=== PATIENT | male | born 1970 | race Caucasian/White ===

== ENCOUNTER 2017-10-22 20:04 | Inpatient (IN) ==
[2017-10-22] MEDS ORDERED: NS 1,000 ML IV ONE (20:20)
[2017-10-22] MEDS ORDERED: DiltiaZEM 25 MG/5 ML INJECTION IVP ONE (20:20)
--- NOTE | 2017-10-22 20:24 | Emergency Department Report ---
Cardiac General HPI - General Chief Complaint: Arrhythmia/Palpitations Stated Complaint: irregular heartrate bypass srg 4weeks ago Time Seen by Provider: 10/22/17 20:12 Source: patient Mode of arrival: ambulatory Limitations: no limitations - History of Present Illness HPI narrative: With 1-2 hour history of rapid pulse and mild tightness in the chest. 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 Patient is one month status post one vessel CABG with thoracic aortic repair. He has never had atrial fibrillation before, has never had an irregular heartbeat. Current medications include metoprolol 25 mg daily, baby aspirin, and a lipid lowering agent. Patient has had a mild cough since surgery, but no fevers, no difficulty breathing, no pulmonary disease is known. - Related Data Home Medications Medication Instructions Recorded Confirmed Aspirin *EC* [Ecotrin] 81 mg PO DAILY 09/19/17 10/22/17 Loratadine [Claritin] 10 mg PO DAILY 09/19/17 10/22/17 Multivitamin/Iron/Folic Acid 1 tab PO DAILY 09/19/17 10/22/17 [Centrum Adults Tablet] Nitroglycerin 0.4 mg SL PRN 09/19/17 10/22/17 Atorvastatin [Lipitor] 40 mg PO HS 10/17/17 10/22/17 Metoprolol Tartrate [Lopressor] 25 mg PO BIDWM 10/17/17 10/22/17 Acetaminophen [Tylenol] 1,000 mg PO Q5H PRN 10/22/17 10/22/17 Cholecalciferol (Vitamin D3) 2,000 unit PO DAILY 10/22/17 10/22/17 [Vitamin D3] Allergies Allergy/AdvReac Type Severity Reaction Status Date / Time No Known Allergies Allergy Verified 10/22/17 20:32 Review of Systems All systems: reviewed and negative except as stated PFSH Patient Stated Medical History Angina Yes Coronary artery disease Atrial fibrillation with RVR Surgical History: CABG 1. Thoracic aortic aneurysm repair - Social History Smoking status: Never smoker Substance use type: does not use Alcohol intake frequency: does not drink Physical Exam - Limitations Limitations: no limitations - General General appearance: alert - Normal Exams: Head:: Normocephalic without trauma Eyes:: Pupils are PERRLA w/ EOMI, No scleral icterus, irritation, or foreign bodies noted ENMT:: No facial trauma, nasal exudates, pharyngeal erythema, or exudates are noted Neck:: Full range of motion, without adenopathy, JVD, bruits or thyromegaly Chest/Respirations:: Clear all ma, with good airflow, and symmetry bilaterally Abdomen:: Bowel sounds positive Lymphatic:: No lymphadenopathy, or lymphedema noted Musculoskeletal:: No tenderness, or deformity noted, good range of motion, all extremities Integumentary:: No rashes, hives, or bruising noted, hair and nails, without abnormality Neurological:: Patient is alert, and oriented, cranial nerves, motor/sensory/ cerebellar, exams w/o gross deficits, to observation Psychiatric:: Patient exhibits, appropriate attention, emotion and affect - Cardiovascular Cardiovascular exam: Present: tachycardia, irregular rhythm Cardiac General - MDM Narrative Medical decision making narrative: Patient is in atrial fibrillation with RVR, EKG shows the same with no ischemia or signs of STEMI. Patient is given Cardizem 20 mg, and 1 L normal saline IV fluid bolus - CBC - n CMP - n Troponin - n CXR - n Patient converted to normal sinus rhythm after the first dose of medications, however with any standing or exertion patient has multiple episodes where he'll slip back in atrial fibrillation for several beats, and then converted back to sinus rhythm. After consultation with MANDO Perez for alireza Ward patient warrants observation overnight in the CCU with a Cardizem drip, to assure complete conversion to sinus rhythm. - Lab Data Result diagrams: 10/22/17 20:24 10/22/17 20:24 Disposition Clinical Impression: Atrial fibrillation with RVR Disposition: 02 To [facility] Condition: Improved Prescriptions: No Action Multivitamin/Iron/Folic Acid [Centrum Adults Tablet] 1 tab PO DAILY Aspirin *EC* [Ecotrin] 81 mg PO DAILY Loratadine [Claritin] 10 mg PO DAILY Metoprolol Tartrate [Lopressor] 25 mg PO BIDWM Atorvastatin [Lipitor] 40 mg PO HS Acetaminophen [Tylenol] 1,000 mg PO Q5H PRN PRN Reason: Pain Nitroglycerin 0.4 mg SL PRN Cholecalciferol (Vitamin D3) [Vitamin D3] 2,000 unit PO DAILY Referrals: Moise Morris MD [Primary Care Provider] - - Seen By: physician
[2017-10-22] MEDS: SALINE FLUSH 10ml SYRINGE IVF PRN (20:36)
[2017-10-22] MEDS: DiltiaZEM Drip 125 MG in NS 125 ML IV SCH (21:38)
[2017-10-22 22:07] VITALS: BMI 24.2
[2017-10-22] MEDS: ATORVASTATIN 40 MG TABLET PO SCH (22:52)
[2017-10-23] MEDS ORDERED: ACETAMINOPHEN 500 MG TABLET PO PRN (05:43)
[2017-10-23] MEDS ORDERED: ENOXAPARIN 150 MG/ML INJECTION SQ SCH (05:45)
--- NOTE | 2017-10-23 08:14 | XRay Report ---
Indication: new onset afib with RVR Procedure: XR chest 2V: Encounter: Initial Comparison: None Technique: PA and lateral radiographs of the chest were obtained. Findings: Lungs and airways: Normal lung volumes. No focal airspace consolidation. Normal pulmonary vasculature. Pleura: No pleural effusion or pneumothorax. Heart and mediastinum: Postoperative changes of CABG. The cardiomediastinal silhouette and great vessels are otherwise within normal limits. Osseous structures and soft tissues: No acute osseous abnormality is seen. Postoperative changes of median sternotomy. Mild degenerative disc disease of the thoracic spine. Impression: No acute cardiopulmonary process. .
[2017-10-23] MEDS: ENOXAPARIN 80 MG/0.8 ML INJECTION SQ SCH ×2 (08:30→08:33)
[2017-10-23] MEDS: LORATADINE 10 MG TABLET PO SCH (08:30)
[2017-10-23] MEDS: ASPIRIN *EC* 81 MG TABLET PO SCH (08:31)
[2017-10-23] MEDS: SALINE FLUSH 10ml SYRINGE IVF PRN ×2 (08:31→20:57)
[2017-10-23] MEDS ORDERED: NON-FORMULARY MEDICATION 1 EACH EACH (Loratadine [Claritin] 10 MG) PO SCH (09:00)
[2017-10-23] MEDS ORDERED: NON-FORMULARY MEDICATION 1 EACH EACH (Cholecalciferol (Vitamin D3) [Vitamin D3] 2,000 UNIT PO SCH (09:00)
--- NOTE | 2017-10-23 12:46 | Cardiology History & Physical ---
History of Present Illness Chief complaint: racing heartbeat HPI: Lukasz is a 46 year old male who is known to Dr. Rangel with a history of CAD , one month status post one vessel CABG with thoracic aortic repair who presented to the ED last night with 1-2 hour history of rapid pulse and mild tightness in the chest. He has never had atrial fibrillation before, has never had an irregular heartbeat. Current medications include metoprolol 25 mg daily, baby aspirin, and a lipid lowering agent. He denies recent illness, fevers, sore throat, difficulty breathing, no pulmonary disease is known. Review of Systems - Constitutional Constitutional: Absent: chills, fatigue, fever(s) - EENMT Eyes: Absent: blurry vision, change in vision Balance: Absent: vertigo Mouth/Throat: Absent: sore throat - Cardiovascular Cardiovascular: Present: chest pain (tightness), palpitations (fast heart rate) . Absent: syncope, dyspnea on exertion, orthopnea, edema Rhythm: Absent: abnormal rhythm Vascular: Absent: pedal edema - Respiratory Respiratory: Present: cough. Absent: dyspnea, dyspnea on exertion - Gastrointestinal Gastrointestinal: Absent: constipation, nausea, vomiting - Genitourinary Genitourinary: Absent: dysuria - Integumentary/Breasts Integumentary: Absent: rash - Neurological Neurological: Present: dizziness (occasionally) - Endocrine Endocrine: Present: palpitations [facility] Patient Stated Medical History Myocardial Infarction Yes CAD HLD Surgical History: CABG 1. Thoracic aortic aneurysm repair Family History: Mother - CABG, PPM Father - CABG - Social History Smoking status: Never smoker Substance use type: does not use Alcohol intake frequency: does not drink Housing: house Household members: spouse Current occupational status: employed Current occupation: teller - [employer] Current occupational exposures/hazards: No Does patient use chewing tobacco?: No Current residence: Apartment/Private Home Medications Home Medications Medication Instructions Recorded Confirmed Type Aspirin *EC* [Ecotrin] 81 mg PO DAILY 09/19/17 10/22/17 History Loratadine [Claritin] 10 mg PO DAILY 09/19/17 10/22/17 History Multivitamin/Iron/Folic Acid 1 tab PO DAILY 09/19/17 10/22/17 History [Centrum Adults Tablet] Nitroglycerin 0.4 mg SL PRN 09/19/17 10/22/17 History Atorvastatin [Lipitor] 40 mg PO HS 10/17/17 10/22/17 History Acetaminophen [Tylenol] 1,000 mg PO Q5H PRN 10/22/17 10/22/17 History Cholecalciferol (Vitamin D3) 2,000 unit PO DAILY 10/22/17 10/22/17 History [Vitamin D3] Sotalol [Betapace] 40 mg PO ACBID #30 tab 10/24/17 Rx Allergies Allergy/AdvReac Type Severity Reaction Status Date / Time No Known Allergies Allergy Verified 10/22/17 20:32 Exam Vital signs: Temperature 97.9 F 10/23/17 07:51 Pulse Rate 76 10/23/17 11:01 Respiratory Rate 18 10/23/17 10:00 Blood Pressure 102/69 10/23/17 10:00 Pulse Oximetry 97 10/23/17 10:00 - Constitutional no acute distress, well nourished, cooperative - Routine HEENT Exam Head: Present: normocephalic ENT: Present: mucous membranes moist - Routine Neck Exam Absent: JVD, carotid bruit - Routine Chest/Breast/Axilla Exam Chest wall: Absent: tenderness - Routine Respiratory Exam Present: CTA bilaterally. Absent: rales, wheezes - Routine Cardiovascular Exam Present: RRR. Absent: JVD - Routine Abdominal Exam Present: soft, non tender - Routine Extremities Exam Present: no edema - Routine Skin Exam Present: intact, dry, warm - Routine Neurological Exam Present: alert, oriented X3 - Routine Psychiatric Exam Present: normal affect, normal thought process Results 10/24/17 05:30 10/24/17 05:30 CBC 10/23/17 Range/Units 04:27 WBC 7.0 (4.5-11.0) T/MM3 RBC 4.13 L (4.50-5.90) M/MM3 Hgb 11.5 L (13.5-17.5) GM/DL Hct 35.5 L (41-53) % Plt Count 135 (130-400) T/MM3 Neut # (Auto) 3.5 (1.8-7.7) T/MM3 Lymph # (Auto) 2.1 (1-4.8) T/MM3 Ritchie # (Auto) 0.6 (0-0.8) T/MM3 Eos # (Auto) 0.9 H (0-0.5) T/MM3 Baso # (Auto) 0.0 (0-0.2) T/MM3 Comprehensive Metabolic Panel 10/23/17 Range/Units 04:27 Sodium 145 (136-146) MEQ/L Potassium 4.0 (3.6-5) MEQ/L Chloride 108 H (98-107) MEQ/L Carbon Dioxide 26 (22-30) MEQ/L BUN 14.0 (9-20) MG/DL Creatinine 0.7 L D (0.8-1.5) mg/dL Glucose 92 (75-110) MG/DL Calcium 8.5 (8.4-10.2) MG/DL Intake and Output 10/22/17 10/23/17 10/23/17 22:59 06:59 14:59 Intake Total 1001.417 / 1001.417 32.084 / 32.084 240 / 240 Output Total 750 / 750 Balance 1001.417 / 1001.417 -717.916 / -717.916 240 / 240 Intake: IV 1001.417 / 1001.417 32.084 / 32.084 DiltiaZEM Drip 125 mg In Ns 125 1.417 / 1.417 32.084 / 32.084 ml @ 5 mls/hr IV .Q24H JER Rx# :[id number] Ns 1,000 ml @ 999.9 mls/hr IV . 1000 / 1000 Q1H ONE Rx#:[id number] Oral 240 / 240 Output: Urine 750 / 750 Other: # Voids 1 Weight 173 lb 8.061 oz - Imaging and Cardiology Imaging & Cardiology Narrative: Date of Exam: 10/22/17 Ordering Provider: Teto Shannon MD Type of Exam(s): XR chest 2V Reason for Exam(s): new onset afib with RVR Indication: new onset afib with RVR Procedure: XR chest 2V: Encounter: Initial Comparison: None Technique: PA and lateral radiographs of the chest were obtained. Findings: Lungs and airways: Normal lung volumes. No focal airspace consolidation. Normal pulmonary vasculature. Pleura: No pleural effusion or pneumothorax. Heart and mediastinum: Postoperative changes of CABG. The cardiomediastinal silhouette and great vessels are otherwise within normal limits. Osseous structures and soft tissues: No acute osseous abnormality is seen. Postoperative changes of median sternotomy. Mild degenerative disc disease of the thoracic spine. Impression: No acute cardiopulmonary process. 10/23/17 12:50 EKG interpretations - EKG EKG results cardiology: sinus rhythm - RI, pacemaker, normal Myocardial infarction: inferior RI (acute or recent), lateral RI (old age or indeterminate) Hospital Course This is a general summary of the patient's hospital course. For more details refer to the complete medical record. Time spent with patient: 25 - 35 minutes Resuscitation Status: Full Code Assessment and Plan - Attestation Attestation Narrative: 10/26/17 14:54 Recommendation After examining the patient I agree with the above assessment. I am involved in the formulation of the patient's plan of care. - Assessment and Plan (1) Atrial fibrillation with RVR Status: Acute Converted to SR with IV Cardizem - Change Metoprolol to Sotalol 40mg po BID, start now - Continue to monitor telemetry, may transfer to Medical floor - Check TSH - EKG in am (2) Atherosclerotic heart disease of [place] coronary artery without angina pectoris Status: Chronic one vessel CABG with thoracic aortic repair - Continue Aspirin, BB and Statin therapy (3) Mixed hyperlipidemia Status: Chronic Continue Aspirin, BB and Statin therapy
[2017-10-23] MEDS: SOTALOL 80 MG TABLET PO SCH ×2 (13:02→20:43)
[2017-10-23] MEDS: ATORVASTATIN 40 MG TABLET PO SCH (20:56)
[2017-10-23] MEDS ORDERED: ATORVASTATIN 40 MG TABLET PO SCH ×2 (21:00)
[2017-10-24] MEDS: SOTALOL 80 MG TABLET PO SCH (06:26)
[2017-10-24] MEDS: LORATADINE 10 MG TABLET PO SCH ×2 (06:26→06:31)
[2017-10-24] MEDS: ASPIRIN *EC* 81 MG TABLET PO SCH (08:06)
--- NOTE | 2017-10-24 08:50 | Discharge Summary ---
<Samaria Jose - Last Filed: 10/24/17 12:44> Discharge Information Date of admission: 10/23/17 13:44 Anticipated date of discharge: 10/24/17 Attending Physician: Garfield Rangel MD Primary care physician: Moise Morris MD - Discharge Diagnosis (1) Atrial fibrillation with RVR Status: Acute (2) Atherosclerotic heart disease of [place] coronary artery without angina pectoris Status: Chronic (3) Mixed hyperlipidemia Status: Chronic Atrial fibrillation with RVR - Laboratory Labs: 10/24/17 05:30 10/24/17 05:30 History of Present Illness HPI: Lukasz is a 46 year old male who is known to Dr. Rangel with a history of CAD , one month status post one vessel CABG with thoracic aortic repair who presented to the ED last night with 1-2 hour history of rapid pulse and mild tightness in the chest. He has never had atrial fibrillation before, has never had an irregular heartbeat. Current medications include metoprolol 25 mg daily, baby aspirin, and a lipid lowering agent. He denies recent illness, fevers, sore throat, difficulty breathing, no pulmonary disease is known. Hospital Course This is a general summary of the patient's hospital course. For more details refer to the complete medical record. Hospital course: Atrial fibrillation with RVR Current visit: Yes Status: Acute Converted to SR with IV Cardizem - Change Metoprolol to Sotalol 40mg po BID, start now - Continue to monitor telemetry, may transfer to Medical floor - Check TSH - EKG in am Atherosclerotic heart disease of [place] coronary artery without angina pectoris Current visit: Yes Status: Chronic one vessel CABG with thoracic aortic repair - Continue Aspirin, BB and Statin therapy Mixed hyperlipidemia Current visit: Yes Status: Chronic Continue Aspirin, BB and Statin therapy Time spent with patient: 25 - 35 minutes Resuscitation Status: Full Code Exam Vital signs: Temperature 98.4 F 10/24/17 07:10 Pulse Rate 73 10/24/17 08:00 Respiratory Rate 16 10/24/17 07:10 Blood Pressure 116/72 10/24/17 07:10 Pulse Oximetry 95 10/24/17 07:10 - Constitutional no acute distress, well nourished, cooperative - Routine HEENT Exam Head: Present: normocephalic ENT: Present: mucous membranes moist - Routine Neck Exam Absent: JVD, carotid bruit - Routine Chest/Breast/Axilla Exam Chest wall: Absent: tenderness - Routine Respiratory Exam Present: CTA bilaterally. Absent: rales, wheezes - Routine Cardiovascular Exam Present: RRR, no murmur - Routine Abdominal Exam Present: soft, non tender - Routine Extremities Exam Present: no edema - Routine Skin Exam Present: intact, dry, warm - Routine Neurological Exam Present: alert, oriented X3 - Routine Psychiatric Exam Present: normal affect, normal thought process Results 10/24/17 05:30 10/24/17 05:30 CBC 10/24/17 Range/Units 05:30 WBC 8.4 (4.5-11.0) T/MM3 RBC 4.73 (4.50-5.90) M/MM3 Hgb 13.0 L D (13.5-17.5) GM/DL Hct 40.2 L D (41-53) % Plt Count 165 (130-400) T/MM3 Comprehensive Metabolic Panel 10/24/17 Range/Units 05:30 Sodium 146 (136-146) MEQ/L Potassium 4.2 (3.6-5) MEQ/L Chloride 107 (98-107) MEQ/L Carbon Dioxide 28 (22-30) MEQ/L BUN 13.0 (9-20) MG/DL Creatinine 0.9 D (0.8-1.5) mg/dL Glucose 92 (75-110) MG/DL Calcium 9.4 D (8.4-10.2) MG/DL Intake and Output 10/23/17 10/24/17 10/24/17 22:59 06:59 14:59 Intake Total 550 / 550 300 / 300 Balance 550 / 550 300 / 300 Intake: Oral 550 / 550 300 / 300 Other: # Voids 1 1 Weight 179 lb 10.828 oz Patient Weight 10/25/17 06:59 Weight 179 lb 10.828 oz - Imaging and Cardiology Imaging & Cardiology Narrative: Date of Exam: 10/22/17 Ordering Provider: Teto Shannon MD Type of Exam(s): XR chest 2V Reason for Exam(s): new onset afib with RVR Indication: new onset afib with RVR Procedure: XR chest 2V: Encounter: Initial Comparison: None Technique: PA and lateral radiographs of the chest were obtained. Findings: Lungs and airways: Normal lung volumes. No focal airspace consolidation. Normal pulmonary vasculature. Pleura: No pleural effusion or pneumothorax. Heart and mediastinum: Postoperative changes of CABG. The cardiomediastinal silhouette and great vessels are otherwise within normal limits. Osseous structures and soft tissues: No acute osseous abnormality is seen. Postoperative changes of median sternotomy. Mild degenerative disc disease of the thoracic spine. Impression: No acute cardiopulmonary process. . 10/24/17 08:47 - EKG Interpretation EKG: sinus rhythm (occ. PVS, LAD, LAE, QTc 436) Discharge Plan - Med Rec/Dispo Referrals/Follow Up: Garfield Rangel MD [Physician] - 11/07/17 9:00 am [place] Instructions: A-fib (Atrial Fibrillation) (DC) Prescriptions: New Sotalol [Betapace] 40 mg PO ACBID #30 tab Continue Multivitamin/Iron/Folic Acid [Centrum Adults Tablet] 1 tab PO DAILY Aspirin *EC* [Ecotrin] 81 mg PO DAILY Loratadine [Claritin] 10 mg PO DAILY Atorvastatin [Lipitor] 40 mg PO HS Acetaminophen [Tylenol] 1,000 mg PO Q5H PRN PRN Reason: Pain Nitroglycerin 0.4 mg SL PRN Cholecalciferol (Vitamin D3) [Vitamin D3] 2,000 unit PO DAILY Discontinued Metoprolol Tartrate [Lopressor] 25 mg PO BIDWM - Disposition 01 Discharged Home, Self-Care - Dismissal Complete Discharge Instructions are:: Complete <Garfield Rangel - Last Filed: 11/02/17 18:01> Discharge Information Date of admission: 10/23/17 13:44 Attending Physician: Garfield Rangel MD Primary care physician: oMise Morris MD - Discharge Diagnosis (1) Atrial fibrillation with RVR Status: Acute (2) Atherosclerotic heart disease of [place] coronary artery without angina pectoris Status: Chronic (3) Mixed hyperlipidemia Status: Chronic - Laboratory Labs: 10/24/17 05:30 10/24/17 05:30 Hospital Course This is a general summary of the patient's hospital course. For more details refer to the complete medical record. Exam Vital signs: Temperature 98.4 F 10/24/17 11:46 Pulse Rate 77 10/24/17 12:00 Respiratory Rate 12 10/24/17 11:46 Blood Pressure 124/100 H 10/24/17 11:49 Pulse Oximetry 96 10/24/17 11:46 Results 10/24/17 05:30 10/24/17 05:30 Attestation Narriative - Attestation Attestation Narrative: 11/02/17 18:01 Recommendation After examining the patient I agree with the above assessment. I am involved in the formulation of the patient's plan of care.
[2017-10-24] MEDS ORDERED: MULTI-VITAMIN + MINERAL TABLET PO SCH (09:00)
[2017-10-24] MEDS ORDERED: ENOXAPARIN 40 MG/0.4 ML INJECTION SQ SCH (09:00)
[2017-10-24] MEDS: DiltiaZEM Drip 125 MG in NS 125 ML IV SCH (11:24)
[2017-10-24 11:44] VITALS: TEMP 98.4
[2017-10-24 11:47] VITALS: RESP 12; O2SAT 96
[2017-10-24 11:50] VITALS: BP 124/100
[2017-10-24 14:26] VITALS: PULSE 77
== END 2017-10-24 14:15 | disposition home or self-care (01) | DRG 310 ==
LOC: ED 20:04 → EDHOLD 20:04 → CCU 21:55 → SRG 10-23 13:45
PROVIDERS: ADMIT Internal Medicine Cardiovascular Disease; ATTEND Internal Medicine Cardiovascular Disease